=== PATIENT | male | born 1965 | race Asian ===

== ENCOUNTER → 2020-11-24 13:46 | Outpatient (REF) | payer OTHER, SELFPAY ==
--- NOTE | 2020-11-24 14:00 | CA_ITS ---
Transthoracic Echocardiogram Patient (Last, First, Middle): Marquise Tran, Gender: Male Date of : 1965 Age: 55 Procedure Date: 11/24/2020 Procedure Type: Transthoracic Echocardiogram Location: OP Height: 172.72 cm Weight: 101.01 kg BSA: 2.14 m2 Heart Rate: bpm BP: 130 / 80 mmHg Putty [employer] Patch Worker: ABIMAEL Referring MD: Maury Lion MD Symptoms: I77.810 MILD ACNDING AORTA DILATION Conclusions: - 1. Normal LV systolic and diastolic function 2. Normal cardiac valvular Doppler 3. Mildly dilated ascending aorta at 4.1 cm 4. Normal RV systolic pressure 5. No pericardial effusion Findings Left Ventricle Normal left ventricular size, thickness, and systolic function. The visually estimated ejection fraction is between 60-65%. Diastolic function is normal for age. Right Ventricle Normal right ventricular cavity size and systolic function. Atria Both atria are normal in size. Interatrial shunt cannot be excluded. Aortic Valve There is mild calcification of the aortic valve. There is no aortic valve stenosis. There is no aortic valve regurgitation. Mitral Valve There is mild mitral annular calcification. There is trace mitral valve regurgitation. There is no mitral valve stenosis. Pulmonic Valve The pulmonic valve was not well visualized. Tricuspid Valve Likely normal tricuspid valve structure and function. There is trace tricuspid valve regurgitation. The right ventricular systolic pressure is normal. The right ventricular systolic pressure is 22 mmHg. Normal right atrial pressure. There is no evidence of pulmonary hypertension. Great Vessels The pulmonary artery was not well visualized. There is mild dilatation of the ascending aorta measuring 4.10 cm. Venous The inferior vena cava is normal in size and collapses greater than 50% with inspiration. Pericardium/Pleural There is no evidence of pericardial effusion. Prior Study Comparison No significant change compared to prior study dated: 11/13/2019. Measurements 2D Linear Measurements IVSd: 1.10 0.6-0.9/0.6-1.0 cm LVIDd: 4.80 3.9-5.3/4.2-5.9 cm LVIDd Index: 2.24 2.4-3.2/2.2-3.1 cm/m2 LVIDs: 2.99 2.0-3.6 cm LVPWd: 1.10 0.7-1.1 cm Ao Root: 3.40 2.1-3.5 cm LA Diam: 3.70 2.7-3.8/3.0-4.0 cm LAIDs Index: 1.73 1.5-2.3 cm/m2 LV Mass: 287.90 67-162/88-224 g LV Mass Index: 134.53 43-95/49-115 g/m2 LVOT Diam: 2.10 3.0+(-)1.3 cm 2D Systolic Function EF 4C: 75.00 >55% Mitral Valve MV Pk E: 0.88 MV PK A: 0.64 MV Decel Time: 115.00 E/A: 1.40 E'Lateral: 8.16 E'Medial: 6.85 E/E' Med: 12.80 E/E' Lat: 10.70 PHT: 34.00 MVA PHT: 6.47 Decel [place]: 7.59 Aortic Valve AoV Pk Blue: 1.45 AoV Pk Grad: 8.00 LVOT LVOT Pk Blue: 1.50 LVOT Mn Blue: 1.03 LVOT VTI: 0.34 LVOT Pk Grad: 9.00 LVOT Mn Grad: 5.00 LVOT Diam: 2.10 LVOT Area: 3.46 Diastolic Function MV Pk E: 0.88 MV Pk A: 0.64 E/A: 1.40 E'Medial: 6.85 E/E' Med: 12.80 E' Laterial: 8.16 E/E' Lat: 10.70 Tricuspid Valve TR Pk Blue: 2.17 TR Pk Grad: 19.00 RA Press: 3.00 RVSP: 22.00 Great Vessels Aorta Ao Root-2D: 3.40 2.0-3.7 cm Ao Asc: 4.10 2.1-3.4 cm Ao Arch: 2.80 Updated in Other Vendor System with Status of Final Jay Maravilla MD electronically signed on 11/24/2020 6:03:04 PM with status of Final
== END ==
LOC: HO.CARD 13:46
PROVIDERS: Visit Provider Internal Medicine Cardiovascular Disease
DX: I77.810 Thoracic aortic ectasia (principal)
CPT/HCPCS: 93306

== ENCOUNTER → 2020-11-30 13:25 | Outpatient (BNVA) | payer OTHER, SELFPAY | PROVIDERS: PCP Internal Medicine; Visit Provider Internal Medicine Cardiovascular Disease | DX: I77.810 Thoracic aortic ectasia (principal); I10 Essential (primary) hypertension | CPT/HCPCS: 93005; 99212 ==

== ENCOUNTER → 2020-12-28 15:14 | Outpatient (BNVA) | payer OTHER, SELFPAY | PROVIDERS: PCP Internal Medicine; Visit Provider Internal Medicine Cardiovascular Disease | DX: I77.810 Thoracic aortic ectasia (principal); I10 Essential (primary) hypertension | CPT/HCPCS: 99212 ==

== ENCOUNTER → 2021-07-12 10:09 | Outpatient (BNVA) | payer OTHER, SELFPAY | PROVIDERS: PCP Hospitalist; Referring Provider Hospitalist; Visit Provider Internal Medicine Cardiovascular Disease | DX: I10 Essential (primary) hypertension (principal); I77.810 Thoracic aortic ectasia | CPT/HCPCS: 93005; 99212 ==

== ENCOUNTER → 2021-12-29 09:31 | Outpatient (REF) | payer OTHER, SELFPAY ==
--- NOTE | 2021-12-29 09:36 | CA_ITS ---
Transthoracic Echocardiogram Patient (Last, First, Middle): Marquise Tran, Gender: Male Date of : 1965 Age: 56 Procedure Date: 12/29/2021 Procedure Type: Transthoracic Echocardiogram Location: OP Height: 170.18 cm Weight: 95.99 kg BSA: 2.07 m2 Heart Rate: bpm BP: 120 / 80 mmHg Microsoft Crm Developer: SAVANNAH Jean MD: Maury Lion MD Symptoms: I77.810 - Thoracic aortic ectasia Study Quality: Fair Conclusions: - Normal left ventricular size, thickness, systolic function, and wall motion. - E/E prime ratio is between 8 and 15 consistent with indeterminate filling pressures. - Normal right ventricular cavity size and systolic function. - The left atrium is likely dilated. - There is mild dilatation of the sinuses of Valsalva measuring 3.88 cm and mild dilatation of the ascending aorta measuring 4.00 cm. Findings Left Ventricle Normal left ventricular size, thickness, systolic function, and wall motion. The visually estimated ejection fraction is between 60-65%. Diastolic function is indeterminate on the basis of available data. Spectral Doppler is indicative of an impaired relaxation filling pattern. E/E prime ratio is between 8 and 15 consistent with indeterminate filling pressures. Right Ventricle Normal right ventricular cavity size and systolic function. Atria The left atrium is likely dilated. The right atrium is normal in size. Aortic Valve Normal aortic valve structure and function. There is no aortic valve stenosis. There is no aortic valve regurgitation. Mitral Valve Normal mitral valve structure and function. There is no mitral valve regurgitation. There is no mitral valve stenosis. Pulmonic Valve Normal pulmonic valve structure and function. There is trace pulmonic valve regurgitation. Tricuspid Valve Normal tricuspid valve structure and function. There is trace tricuspid valve regurgitation. Normal right atrial pressure. There is no evidence of pulmonary hypertension. Great Vessels There is mild dilatation of the sinuses of Valsalva measuring 3.88 cm and mild dilatation of the ascending aorta measuring 4.00 cm. The visualized portions of the pulmonary artery and branches are normal. Venous The inferior vena cava is normal in size and collapses greater than 50% with inspiration. Pericardium/Pleural Normal pericardial structure. There is no evidence of pericardial effusion. Prior Study Comparison No significant change compared to prior study dated: 11/24/2021. Measurements 2D Linear Measurements IVSd: 1.05 0.6-0.9/0.6-1.0 cm LVIDd: 4.55 3.9-5.3/4.2-5.9 cm LVIDd Index: 2.20 2.4-3.2/2.2-3.1 cm/m2 LVIDs: 2.73 2.0-3.6 cm LVPWd: 1.11 0.7-1.1 cm LA Diam: 4.10 2.7-3.8/3.0-4.0 cm LAIDs Index: 1.98 1.5-2.3 cm/m2 LV Mass: 216.23 67-162/88-224 g LV Mass Index: 104.46 43-95/49-115 g/m2 LVOT Diam: 2.30 3.0+(-)1.3 cm 2D Systolic Function EF 4C: 67.70 >55% EF 2C: 67.30 >55% EF BiP: 68.30 >55% Mitral Valve MV Pk E: 0.93 MV PK A: 0.75 MV Decel Time: 296.00 E/A: 1.20 E'Lateral: 8.70 E'Medial: 6.96 E/E' Med: 13.40 E/E' Lat: 10.70 PHT: 87.00 MVA PHT: 2.53 Decel [place]: 3.15 Aortic Valve AoV Pk Blue: 1.68 AoV Mn Blue: 1.20 AoV VTI: 0.38 AoV Pk Grad: 11.00 Aov Mn Grad: 7.00 ERIC Cont.VTI: 3.40 LVOT LVOT Pk Blue: 1.41 LVOT Mn Blue: 1.03 LVOT VTI: 0.31 LVOT Pk Grad: 8.00 LVOT Mn Grad: 5.00 LVOT Diam: 2.30 LVOT Area: 4.15 Diastolic Function MV Pk E: 0.93 MV Pk A: 0.75 E/A: 1.20 E'Medial: 6.96 E/E' Med: 13.40 E' Laterial: 8.70 E/E' Lat: 10.70 Right Ventricle TAPSE (mm): 23.00 TVS' Blue: 12.50 Tricuspid Valve TR Pk Blue: 2.47 TR Pk Grad: 24.00 RA Press: 3.00 RVSP: 27.00 Great Vessels Aorta Sinus of Valsalva: 3.88 2.0-3.[address] [place]: 3.29 1.7-3.4 cm Ao Asc: 4.00 2.1-3.4 cm Ao Arch: 3.10 Updated in Other Vendor System with Status of Final Maury Lion MD electronically signed on 12/30/2021 12:35:37 PM with status of Final
== END ==
LOC: HO.CARD 09:31
PROVIDERS: Visit Provider Internal Medicine Cardiovascular Disease
DX: I77.810 Thoracic aortic ectasia (principal)
CPT/HCPCS: 93306

== ENCOUNTER → 2022-07-11 09:56 | Outpatient (BNVA) | payer OTHER, SELFPAY | PROVIDERS: PCP Nurse Practitioner Family; Referring Provider Nurse Practitioner Family; Visit Provider Internal Medicine Cardiovascular Disease | DX: I77.810 Thoracic aortic ectasia (principal); I10 Essential (primary) hypertension | CPT/HCPCS: 93005; 99212 ==

== ENCOUNTER → 2022-12-13 07:48 | Outpatient (REF) | payer MEDICAID, SELFPAY ==
--- NOTE | 2022-12-13 07:51 | CA_ITS ---
Transthoracic Echocardiogram Patient (Last, First, Middle): Marquise Tran, Gender: Male Date of : 1965 Age: 57 Procedure Date: 12/13/2022 Procedure Type: Transthoracic Echocardiogram Location: OP Height: 172. cm Weight: 95. kg BSA: 2.08 m2 Heart Rate: 55 bpm Core Mounter: KIMBERLEY Referring MD: Maury Lion MD Symptoms: I77.810 - Thoracic aortic ectasia Study Quality: Adequate ECG Rhythm: Bradycardia Conclusions: - The left ventricular systolic function is normal. The visually estimated ejection fraction is between 60-65%. - There is moderate septal asymmetric hypertrophy. - No obvious valvular pathology seen on this study. - There is mild dilatation of the ascending aorta measuring 4.10 cm. Findings Left Ventricle Normal left ventricular cavity size. The left ventricular systolic function is normal. The visually estimated ejection fraction is between 60-65%. There is no evidence of regional wall motion abnormalities. Diastolic function is normal for age. There is moderate septal asymmetric hypertrophy. Right Ventricle Normal right ventricular cavity size and systolic function. Atria Both atria are normal in size. Aortic Valve There is a normal trileaflet aortic valve. There is mild calcification of the aortic valve. There is no aortic valve stenosis. There is no aortic valve regurgitation. Mitral Valve The mitral valve appears normal. There is no mitral valve regurgitation. There is no mitral valve stenosis. Pulmonic Valve The pulmonic valve is likely normal. Tricuspid Valve Normal tricuspid valve structure. There is mild tricuspid valve regurgitation. There is no evidence of pulmonary hypertension. Great Vessels There is mild dilatation of the ascending aorta measuring 4.10 cm. Venous The inferior vena cava is normal in size and collapses greater than 50% with inspiration. Pericardium/Pleural There is no evidence of pericardial effusion. Prior Study Comparison Changes noted compared to prior study dated: 12/29/2021. See comment on septum. Recommendations, Care & Conclusions No obvious valvular pathology seen on this study. Measurements 2D Linear Measurements IVSd: 1.42 0.6-0.9/0.6-1.0 cm LVIDd: 4.92 3.9-5.3/4.2-5.9 cm LVIDd Index: 2.37 2.4-3.2/2.2-3.1 cm/m2 LVIDs: 2.59 2.0-3.6 cm LVPWd: 0.69 0.7-1.1 cm LA Diam: 4.20 2.7-3.8/3.0-4.0 cm LAIDs Index: 2.02 1.5-2.3 cm/m2 LV Mass: 237.00 67-162/88-224 g LV Mass Index: 113.94 43-95/49-115 g/m2 LVOT Diam: 2.00 3.0+(-)1.3 cm 2D Systolic Function EF 4C: 64.40 >55% Mitral Valve MV Pk E: 0.80 MV PK A: 0.51 MV Decel Time: 157.00 E/A: 1.60 E'Lateral: 9.90 E'Medial: 6.53 E/E' Med: 12.30 E/E' Lat: 8.10 PHT: 46.00 MVA PHT: 4.78 Decel [place]: 5.12 Aortic Valve AoV Pk Blue: 1.54 AoV Pk Grad: 9.00 ERIC: 2.52 LVOT LVOT Pk Blue: 1.30 LVOT Mn Blue: 0.92 LVOT VTI: 0.31 LVOT Pk Grad: 7.00 LVOT Mn Grad: 4.00 LVOT Diam: 2.00 LVOT Area: 3.14 Diastolic Function MV Pk E: 0.80 MV Pk A: 0.51 E/A: 1.60 E'Medial: 6.53 E/E' Med: 12.30 E' Laterial: 9.90 E/E' Lat: 8.10 Right Ventricle TAPSE (mm): 27.20 TVS' Blue: 14.10 Tricuspid Valve TR Pk Blue: 2.33 TR Pk Grad: 22.00 RA Press: 3.00 RVSP: 25.00 Great Vessels Aorta Sinus of Valsalva: 3.90 2.0-3.5 cm Ao Asc: 4.10 2.1-3.4 cm Ao Arch: 3.10 Ao Desc: 2.00 Pulmonary Veins Pulm Vein S/D 1.20 Pulmonary Valve PV Pk Blue: 1.17 Peak PV Grad: 5.00 Updated in Other Vendor System with Status of Final Kirby Valiente MD electronically signed on 12/13/2022 11:48:23 AM with status of Final
== END ==
LOC: HO.CARD 07:48
PROVIDERS: PCP Nurse Practitioner Family; Visit Provider Internal Medicine Cardiovascular Disease
DX: I77.810 Thoracic aortic ectasia (principal); I10 Essential (primary) hypertension
CPT/HCPCS: 93306

== ENCOUNTER → 2022-12-26 11:14 | Outpatient (BNVA) | payer OTHER, SELFPAY | PROVIDERS: PCP Nurse Practitioner Family; Referring Provider Nurse Practitioner Family; Visit Provider Internal Medicine Cardiovascular Disease | DX: Z13.89 Encounter for screening for other disorder (principal) ==

== ENCOUNTER 2024-05-08 13:31 | Outpatient (AMB) | payer OTHER, SELFPAY ==
[2024-05-08 14:06] VITALS: BP 126/64; PULSE 74; BMI 33.5
--- NOTE | 2024-05-08 14:06 | A.OFFVIS_ITS ---
Vital Signs 05/08/24 14:06 Height 5 ft 8 in Weight 220 lb 0.341 oz BMI 33.5 BP 126/64 Blood Pressure Location Lt brachial Position Sitting Pulse 74 Pulse Source Monitor Intake Visit Reasons: 6 mth fu Intake Note: 6 mth f/up/ pt is feeling fine Wire Spiral Binder Required: No Accompanied by: Self / Same As Patient Allergies No Known Allergies [No Known Allergies*] Allergy (Verified 12/26/22 11:15) Medication List - Last Reconciled 05/08/24 by Maury Lion MD dulaglutide (Trulicity) mg subcut irbesartan-hydrochlorothiazide 300-12.5 mg 1 tab PO DAILY metformin 500 mg PO BID rosuvastatin 10 mg PO BEDTIME HPI Comments Details: 58-year-old gentleman with mild ascending aortic dilatation noticed incidentally on echocardiography performed for hypertension. He has been doing well. No chest pain or shortness of breath. Blood pressure was mildly elevated and his medications were chest to previously. His blood pressure in the office is good currently. Repeat echocardiography has shown similar aortic size. He has asymmetric moderate septal hypertrophy. On follow-up he continues to be asymptomatic without any chest discomfort shortness of breath. 05/08/2024: He returns for follow-up. Clinically asymptomatic. Blood pressure is well controlled. Last echocardiogram was in 12/12/2022 when ascending aortic size was 4.1 cm. [facility] Surgical History History of nephrolithotomy with removal of calculi H/O knee surgery History of tonsillectomy Family History Mother Heart disease Father Diabetes Heart disease HTN (hypertension) Family/Other HTN (hypertension) Social History Alcohol intake: never Patient Tobacco Use Status: Never used Tobacco Review of Systems Const Denies chills, Denies fatigue, Denies fever(s), Denies frequent falls, Denies weakness, Denies weight gain and Denies weight loss ENT Denies dizziness Card Denies chest pain, Denies leg edema, Denies lightheadedness, Denies palpitations, Denies dyspnea and Denies dyspnea on exertion Resp Denies cough, Denies dyspnea and Denies dyspnea on exertion GI Denies hematochezia Musc Denies abnormal gait, Denies muscle weakness, Denies numbness, Denies radiating pain into limb and Denies tingling Neuro Denies abnormal gait, Denies dizziness, Denies frequent falls, Denies numbness, Denies tingling and Denies weakness Endo Denies fatigue and Denies palpitations Physical Exam Vital Signs: Last Vital Signs Pulse 74 05/08/24 14:06 BP 126/64 05/08/24 14:06 BMI result Body Mass Index 33.5 GENERAL APPEARANCE: in no acute distress, pleasant. NECK: no carotid bruit, no jugular venous distention. SKIN: no suspicious lesions, warm and dry. HEART: no murmurs, regular rate and rhythm. LUNGS: clear to auscultation bilaterally. ABDOMEN: soft, nontender. EXTREMITIES: no edema. PERIPHERAL PULSES: equal. NEUROLOGIC: No gross deficits, AAO X 3 Office Procedures EKG Details: Sinus rhythm 74 beats per minute, normal ECG, QTC 444 milliseconds. [id number], Complete Assessment & Plan Assessment & Plan (1) Mild dilation of ascending aorta: Code(s): I77.810 - Thoracic aortic ectasia Category: Medical (2) Hypertension: Code(s): I10 - Essential (primary) hypertension Category: Medical Qualifiers: Hypertension type: essential hypertension Qualified Code(s): I10 - Essential (primary) hypertension Plan Pleasant 58 year gentleman who is here for follow-up. He has background history of hypertension and mild ascending aortic dilatation. Blood pressure is well controlled currently on irbesartan hydrochlorothiazide combination. On rosuvastatin for hyperlipidemia. We will repeat echocardiogram in September or October to reassess the aortic size. Follow-up in 1 year. Thank you for allowing me to participate in the care of your patient. Please feel free to contact me if you have any questions. Orders: Orders CA echo transthoracic complete 6 Months I77.810 - Thoracic aortic ectasia Coding Level of Care Code Est Pt Level 3 (04956) Diagnoses Mild dilation of ascending aorta I77.810 Essential hypertension I10 Hypertension type: essential hypertension CPT Codes EKG - CPT: 81148-[id number], Complete ([id number])
== END 2024-05-08 14:26 | disposition home or self-care (01) ==
PROVIDERS: PCP Nurse Practitioner Family; Visit Provider Internal Medicine Cardiovascular Disease
DX: I77.810 Thoracic aortic ectasia (principal); I10 Essential (primary) hypertension
CPT/HCPCS: 93010; 99213

== ENCOUNTER → 2024-05-08 13:31 | Outpatient (BNVA) | payer OTHER, SELFPAY | PROVIDERS: PCP Nurse Practitioner Family; Visit Provider Internal Medicine Cardiovascular Disease | DX: I77.810 Thoracic aortic ectasia (principal); I10 Essential (primary) hypertension; Z79.899 Other long term (current) drug therapy | CPT/HCPCS: 93005; 99212 ==

== ENCOUNTER → 2024-10-21 08:50 | Outpatient (REF) | payer OTHER, SELFPAY ==
--- NOTE | 2024-10-21 08:52 | CA_ITS ---
Transthoracic Echocardiogram Patient (Last, First, Middle): Marquise Tran, Gender: Male Date of : 1965 Age: 59 Procedure Date: 10/21/2024 Procedure Type: Transthoracic Echocardiogram Location: OP Height: 172. cm Weight: 92.99 kg BSA: 2.06 m2 Heart Rate: 58 bpm BP: 100 / 60 mmHg [place] Worker: JULIA Jean MD: Maury Lion MD Form Setter Steel Pan Forms: Jay Maravilla MD Symptoms: I77.810 - Thoracic aortic ectasia Study Quality: Adequate ECG Rhythm: Bradycardia Conclusions: - 1. Normal LV ejection fraction of 65-70% with mild asymmetric septal hypertrophy 2. Cardiac valvular Dopplers within normal limits 3. Mildly dilated ascending aorta at 4.1 cm 4. Normal RV systolic pressure Findings Left Ventricle Normal left ventricular size, thickness, and systolic function. The visually estimated ejection fraction is between 65-70%. Spectral Doppler is indicative of a normal filling pattern. Right Ventricle Normal right ventricular cavity size and systolic function. Atria The left atrium is likely dilated. Interatrial shunt cannot be excluded. The right atrium is normal in size. Aortic Valve There is mild calcification of the aortic valve. There is mild thickening of the aortic valve. There is no aortic valve stenosis. There is no aortic valve regurgitation. Mitral Valve Normal mitral valve structure and function. There is trace mitral valve regurgitation. There is no mitral valve stenosis. Pulmonic Valve The pulmonic valve is likely normal. Tricuspid Valve Normal tricuspid valve structure. There is trace tricuspid valve regurgitation. The right ventricular systolic pressure is normal. The right ventricular systolic pressure is 22 mmHg. Normal right atrial pressure. There is no evidence of pulmonary hypertension. Great Vessels The pulmonary artery was not well visualized. There is mild dilatation of the ascending aorta measuring 4.10 cm. Small plaque is seen in the sino tubular ridge. Venous The inferior vena cava is normal in size and collapses greater than 50% with inspiration. Pericardium/Pleural There is no evidence of pericardial effusion. Prior Study Comparison No significant change compared to prior study dated: 12/13/2022. Measurements 2D Linear Measurements IVSd: 1.28 0.6-0.9/0.6-1.0 cm LVIDd: 4.27 3.9-5.3/4.2-5.9 cm LVIDd Index: 2.07 2.4-3.2/2.2-3.1 cm/m2 LVIDs: 2.73 2.0-3.6 cm LVPWd: 1.11 0.7-1.1 cm LA Diam: 3.90 2.7-3.8/3.0-4.0 cm LAIDs Index: 1.89 1.5-2.3 cm/m2 LV Mass: 271.18 67-162/88-224 g LV Mass Index: 131.64 43-95/49-115 g/m2 LVOT Diam: 1.90 3.0+(-)1.3 cm 2D Systolic Function EF 4C: 64.80 >55% EF 2C: 75.00 >55% EF BiP: 68.00 >55% Mitral Valve MV Pk E: 0.89 MV PK A: 0.54 MV Decel Time: 260.00 E/A: 1.60 E'Lateral: 10.00 E'Medial: 6.53 E/E' Med: 13.60 E/E' Lat: 8.90 PHT: 76.00 MVA PHT: 2.89 Decel [place]: 3.42 Aortic Valve AoV Pk Blue: 1.46 AoV Mn Blue: 1.06 AoV VTI: 0.36 AoV Pk Grad: 9.00 Aov Mn Grad: 5.00 ERIC Cont.VTI: 2.25 LVOT LVOT Pk Blue: 1.25 LVOT Mn Blue: 0.82 LVOT VTI: 0.28 LVOT Pk Grad: 6.00 LVOT Mn Grad: 3.00 LVOT Diam: 1.90 LVOT Area: 2.84 Diastolic Function MV Pk E: 0.89 MV Pk A: 0.54 E/A: 1.60 E'Medial: 6.53 E/E' Med: 13.60 E' Laterial: 10.00 E/E' Lat: 8.90 Right Ventricle TAPSE (mm): 28.10 TVS' Blue: 12.40 Tricuspid Valve TR Pk Blue: 1.90 TR Pk Grad: 14.00 RA Press: 8.00 RVSP: 22.00 Great Vessels Aorta Sinus of Valsalva: 4.00 2.0-3.5 cm Ao Asc: 4.10 2.1-3.4 cm Ao Arch: 3.40 Pulmonary Valve PV Pk Blue: 1.12 Peak PV Grad: 5.00 Updated in Other Vendor System with Status of Final Jya Maravilla MD electronically signed on 10/21/2024 4:49:32 PM with status of Final
== END ==
LOC: HO.CARD 08:50
PROVIDERS: PCP Nurse Practitioner Family; Visit Provider Internal Medicine Cardiovascular Disease
DX: I77.810 Thoracic aortic ectasia (principal)
CPT/HCPCS: 93306

== ENCOUNTER → 2024-10-21 08:52 | Outpatient (BNV) | payer OTHER, SELFPAY | PROVIDERS: PCP Nurse Practitioner Family; Visit Provider Internal Medicine Cardiovascular Disease | DX: I42.2 Other hypertrophic cardiomyopathy (principal); I77.810 Thoracic aortic ectasia; I35.8 Other nonrheumatic aortic valve disorders | CPT/HCPCS: 93306 ==